=== PATIENT | female | born 1965 | race Caucasian/White ===

== ENCOUNTER 2017-09-13 19:34 | Emergency (ER) | END 2017-09-14 00:46 | disposition home or self-care (01) ==

== ENCOUNTER 2018-04-09 10:16 | Emergency (ER) | END 2018-04-09 11:44 | disposition home or self-care (01) ==

== ENCOUNTER 2018-08-11 11:20 | Emergency (ER) | payer OTHER ==
[~2018-08-11] VITALS: Ht 167.6 cm; Wt 92.6 kg
[~2018-08-11 11:20] MED LIST: ASPI-535 PO; BENA10TA4 PO; FAMO20TA18 PO; INSU100V14 SC; LEVO50TA7 PO; MTF1000T PO; NPH,100V SC; SIMV40TA3 PO; TRAM50TA PO
[2018-08-11 11:27] VITALS: Ht 167.6 cm; Wt 92.6 kg
--- NOTE | 2018-08-11 14:33 | ERD ---
ER Documentation Chief Complaint Chief Complaint headache HPI The patient is a 53-year-old female, presenting with vague intermittent headache that began around 9:30 AM today, had similar symptom previously, complains of a lot of stress in her life and substernal chest discomfort but mainly her headache. She denies fever, chills, neck pain, chest pain with vomiting/radiation/exertion/diaphoresis, dyspnea, abdominal pain, vomiting, dizzy, diarrhea. She does not smoke nor drink Past medical history: Diabetes mellitus, dyslipidemia, hypertension, hypothyroidism, anxiety Past surgical history: 2 , bilateral cataract ROS All systems reviewed and are negative except as per history of present illness. Medications Home Meds Active Scripts Ibuprofen* (Motrin*) 600 Mg Tab, 600 MG PO Q6H PRN for PAIN AND OR ELEVATED TEMP, #20 TAB Prov:MONTEZ CONTRERAS MD 08/11/18 Reported Medications Levothyroxine Sodium* (Levothyroxine Sodium*) 50 Mcg Tablet, 50 MCG PO BEFORE BREAKFAST, #30 TAB 08/11/18 Benazepril Hcl* (Benazepril Hcl*) 20 Mg Tablet, 20 MG PO DAILY, #30 TAB 08/11/18 Naproxen* (Naproxen*) 500 Mg Tablet, 500 MG PO BID, TAB 08/11/18 Aspirin* (Aspirin* Chew) 81 Mg Tab.chew, 81 MG PO DAILY, TAB.CHEW 08/11/18 Simvastatin* (Zocor*) 20 Mg Tablet, 20 MG PO QHS, #30 TAB 08/11/18 Metformin Hcl* (Metformin Hcl*) 1,000 Mg Tablet, 1000 MG PO WITH BREAKFAST DINNE, #60 TAB 08/11/18 Insulin Regular, Human (Humulin R) 100 Unit/1 Ml Vial, 10 UNIT IJ BID, VIAL 08/11/18 Insulin NPH Human Isophane (Humulin N) 100 Unit/1 Ml Vial, 54 UNIT SQ BID, VIAL 08/11/18 Discontinued Reported Medications Insulin Regular, Human (Humulin R) 100 Units/Ml Vial, 10 UNIT SC BID, VIAL 01/07/15 Nph, Human Insulin Isophane (Humulin N) 100 Units/Ml Vial, 50 UNIT SC BID, VIAL 01/07/15 Aspirin Ec (Aspir 81) 81 Mg Tablet.dr, 81 MG PO DAILY, TAB 01/07/15 Simvastatin (Simvastatin) 40 Mg Tablet, 40 MG PO HS, TAB 01/07/15 Famotidine* (Famotidine*) 20 Mg Tablet, 20 MG PO DAILY, TAB 01/07/15 Benazepril Hcl* (Benazepril Hcl*) 10 Mg Tablet, 10 MG PO DAILY, TAB 01/07/15 Metformin* (Glucophage*) 1,000 Mg Tablet, 1000 MG PO BID, TAB 01/07/15 Levothyroxine Sodium* (Levothyroxine Sodium*) 50 Mcg Tablet, 50 MCG PO AC BREAKFAST, TAB 01/07/15 Discontinued Scripts Tramadol Hcl* (Ultram*) 50 Mg Tablet, 50 MG PO Q6H PRN for PAIN, #14 TAB Prov:MONTEZ CONTRERAS MD 09/13/17 Allergies Allergies: Coded Allergies: No Known Allergy (Unverified , 08/11/18) PMhx/Soc History of Surgery: Yes (c/section x2) Anesthesia Reaction: No Hx Neurological Disorder: No Hx Respiratory Disorders: No Hx Cardiac Disorders: Yes (htn,hypercholesterolemia) Hx Psychiatric Problems: No Hx Miscellaneous Medical Probl: Yes (dm,thyroid problem) Hx Alcohol Use: No Hx Substance Use: No Hx Tobacco Use: No Smoking Status: Never smoker Physical Exam Vitals Vital Signs Date Temp Pulse Resp B/P (MAP) Pulse Ox O2 O2 Flow FiO2 Time Delivery Rate 08/11/18 65 18 135/88 98 Room Air 16:28 (104) 08/11/18 97.0 84 20 155/66 98 11:27 (95) Physical Exam Const: No acute distress. Head: Atraumatic. Eyes: Normal Conjunctiva. ENT: Normal External Ears, Nose and Mouth. Neck: Full range of motion. No meningismus. Resp: Clear to auscultation bilaterally. Cardio: Regular rate and rhythm. Abd: Soft, non distended, normal bowel sounds, non tender. Skin: No petechiae or rashes. Back: No midline or flank tenderness. Ext: No cyanosis, or edema. Neur: Awake and alert. No focal deficit Psych: Anxious Result Diagram: 08/11/18 1515 08/11/18 1515 Results 24 hrs Laboratory Tests Test 08/11/18 15:15 White Blood Count 10.1 10^3/ul Red Blood Count 4.50 10^6/ul Hemoglobin 12.7 g/dl Hematocrit 39.2 % Mean Corpuscular Volume 87.1 fl Mean Corpuscular Hemoglobin 28.2 pg Mean Corpuscular Hemoglobin Concent 32.4 g/dl Red Cell Distribution Width 12.7 % Platelet Count 301 10^3/UL Mean Platelet Volume 9.8 fl Immature Granulocytes % 0.400 % Neutrophils % 62.7 % Lymphocytes % 28.9 % Monocytes % 6.6 % Eosinophils % 0.7 % Basophils % 0.7 % Nucleated Red Blood Cells % 0.0 /100WBC Immature Granulocytes # 0.040 10^3/ul Neutrophils # 6.3 10^3/ul Lymphocytes # 2.9 10^3/ul Monocytes # 0.7 10^3/ul Eosinophils # 0.1 10^3/ul Basophils # 0.1 10^3/ul Nucleated Red Blood Cells # 0.0 10^3/ul Sodium Level 144 mmol/L Potassium Level 4.5 mmol/L Chloride Level 104 mmol/L Carbon Dioxide Level 32 mmol/L Anion Gap 8 Blood Urea Nitrogen 13 mg/dl Creatinine 0.51 mg/dl Est Glomerular Filtrat Rate mL/min > 60 mL/min Glucose Level 117 mg/dl Calcium Level 10.1 mg/dl Total Bilirubin 0.5 mg/dl Direct Bilirubin 0.00 mg/dl Indirect Bilirubin 0.5 mg/dl Aspartate Amino Transf (AST/SGOT) 24 IU/L Alanine Aminotransferase (ALT/SGPT) 30 IU/L Alkaline Phosphatase 46 IU/L Total Protein 7.1 g/dl Albumin 4.2 g/dl Globulin 2.90 g/dl Albumin/Globulin Ratio 1.44 Lipase 83 U/L Current Medications Medications Dose Sig/Figueroa Start Time Status Last (Trade) Ordered Route PRN Stop Time Admin Dose Reason Admin Alprazolam 0.25 mg ONCE ONCE 08/11/18 DC 08/11/18 (Xanax) PO 15:30 15:59 08/11/18 15:31 Procedures/MDM EKG: Read by emergency physician Rate/Rhythm: Normal Sinus Rhythm 77 beats/min QRS, ST, T-waves: No ST elevation, no T inversion, LAE, LAD Impression: Abnormal EKG MEDICAL MAKING DECISION: The patient is a 53-year-old female, presenting with acute anxiety, was treated with Xanax 0.25 mg p.o. for acute anxiety with good response, is stable for outpatient follow-up The differential diagnoses considered include but are not limited to subarachnoid hemorrhage, occult trauma, CVA, meningitis, encephalitis, hypertension, tension, migraine, cluster, narcotic withdrawal, cervical spine disease. Departure Diagnosis: Primary Impression: Anxiety Additional Impression: Headache Condition: Good Comments She was discharged with Motrin I discussed the findings with the patient. I advised the patient to follow-up with the primary physician in about 2-3 days, sooner if needed and return if any concern. Disclaimer: Inadvertent spelling and grammatical errors are likely due to EHR/dictation software use and do not reflect on the overall quality of patient care. Also, please note that the electronic time recorded on this note does not necessarily reflect the actual time of the patient encounter. MONTEZ CONTRERAS MD Aug 11, 2018 14:33
[2018-08-11] MEDS ORDERED: NPH,100V SQ (15:21)
[2018-08-11] MEDS ORDERED: INSU100V3 IJ (15:22)
[2018-08-11] MEDS ORDERED: SIMV20TA PO (15:23)
[2018-08-11] MEDS ORDERED: METF100010 PO (15:23)
[2018-08-11] MEDS ORDERED: ASPI-903 PO (15:23)
[2018-08-11] MEDS ORDERED: NAPR-688 PO (15:24)
[2018-08-11] MEDS ORDERED: BENA20TA4 PO (15:24)
[2018-08-11] MEDS ORDERED: LEVO50TA7 PO (15:25)
[2018-08-11] MEDS ORDERED: ALPRAZOLAM 0.25 MG TAB PO ONE (15:30)
[2018-08-11 16:28] VITALS: BP 135/88; PULSE 65; RESP 18
[2018-08-11] MEDS ORDERED: IBUP-1542 PO (16:35)
== END 2018-08-11 17:07 | disposition home or self-care (01) ==
LOC: E/R 11:20
DX: F41.9 Anxiety disorder, unspecified (principal); E11.9 Type 2 diabetes mellitus without complications; I10 Essential (primary) hypertension; E03.9 Hypothyroidism, unspecified; Z79.4 Long term (current) use of insulin; Z79.82 Long term (current) use of aspirin
CPT/HCPCS: 36415; 80053; 83690; 85025; Z7502; Z7610; 99283